=== PATIENT | female | born 1945 | race Caucasian/White ===

== ENCOUNTER 2020-11-26 20:00 | Emergency (ER) | payer MEDICARE, SELFPAY ==
--- NOTE | ~2020-11-26 | XR_ITS ---
EXAMINATION: XR ankle LT min 3V, XR foot LT min 3V DATE: 11/26/2020 20:36 INDICATION: Anterior and lateral left foot and ankle pain post injury TECHNIQUE: 1. Anteroposterior, mortise, additional oblique and lateral view of the left ankle were obtained. 2. Dorsoplantar, two oblique and lateral views of the left foot were obtained. COMPARISON: None. FINDINGS: 25 degrees hallux valgus with bunion at the medial head of the first metatarsal. Alignment of the norman t and ankle is otherwise normal. There is suggestion of a small flake-like avulsion fracture along th e anterolateral margin of the anterior process of the calcaneus in the region of the footplate of the bifurcate ligament. There is mild overlying soft tissue swelling. No other lesions suspicious for fr acture identified. Polyarticular osteoarthritis, mild to moderate at the first metatarsophalangeal ethan int and mild at several joints in the midfoot and multiple interphalangeal joints. No ankle joint eff usion. IMPRESSION: 1. Very small flake-like avulsion fracture at the dorsal lateral aspect of the anterior process of th e calcaneus. Reviewed, dictated and finalized at location A. IMPRESSION: 1. Very small flake-like avulsion fracture at the dorsal lateral aspect of the anterior process of the calcaneus.
[2020-11-26 20:10] VITALS: BP 113/46; PULSE 79; RESP 18; TEMP 36.9; O2SAT 99
--- NOTE | 2020-11-26 20:32 | ED.LOWEXIN ---
HPI - Extremity Injury (Lower) General Chief Complaint: Extremity Injury, Lower Stated Complaint: Injury to left Foot Time Seen by Provider: 11/26/20 20:00 Source: patient, RN notes reviewed and old records reviewed History of Present Illness HPI Narrative: 75 year old female presents to [facility] care with complaints of injury to her left foot which occurred 3 hours ago. She states that she was going down the last step off of her front porch and her ankle went sideways and she felt a pop. Patient states that she did not actually fall it was like she strained her ankle. Patient states that pain is worse when she walks on it states that it is throbbing rates it a 6/10. Patient has bruising to the lateral aspect of her foot. She rates the pain as 6/10 throbbing worse when she walks on it bruising to the lateral foot pain lateral foot and up to ankle. MD complaint: ankle injury and foot injury Onset (ago): hour(s) Injury: Left: ankle and foot Type of Injury: inversion Severity scale (1-10): 6 Exacerbating factors: nothing Context: other (twisted the foot) Associated symptoms: snap/pop sensation Related Data Home Medications Medication Instructions Recorded Confirmed Imig Infusions 06/12/19 alprazolam [Xanax] 0.5 mg PO TID PRN 06/12/19 06/12/19 carbidopa-levodopa 1 tablet PO TID 06/12/19 06/12/19 celecoxib 06/12/19 escitalopram oxalate 10 mg PO DAILY 06/12/19 06/12/19 levothyroxine 88 mcg PO DAILY 06/12/19 06/12/19 mirtazapine 15 mg PO HS 06/12/19 06/12/19 quetiapine 200 mg PO HS 06/12/19 06/12/19 Allergies Allergy/AdvReac Type Severity Reaction Status Date / Time alcohol Allergy Severe Seizure Verified 06/17/19 12:16 Contrast Media Allergy Unknown Hives Uncoded 06/12/19 13:02 Review of Systems Review of Systems: Narrative: CONSTITUTIONAL: Denies fever, chills, or sweats. EYES: Denies visual changes, redness, or discharge. ENT: Denies rhinorrhea, congestion, sore throat, or otalgia. CARDIOVASCULAR: Denies chest pain, palpitations, or edema. RESPIRATORY: Denies cough or dyspnea. GASTROINTESTINAL: Denies abdominal pain, nausea, vomiting, or diarrhea. GENITOURINARY: Denies dysuria or hematuria. SKIN: Denies rash or itching. MUSCULOSKELETAL: Denies back pain,positive for left lateral ankle joint pain lateral left foot, or myalgia. NEUROLOGIC: Denies headache, numbness, or weakness. PSYCHIATRIC: Denies anxiety or depression. All systems reviewed & are unremarkable except as noted in HPI and below PMFSH Past Medical History Medical History (Updated 12/01/20 @ 18:19 by Jade Barton NP) Anxiety Cervical cancer Cervical vertebral fusion Fibromyalgia Fusion of lumbar spine Leukopenia Mycobacterium avium complex Parkinsons disease Recovering alcoholic Shingles Surgical History Surgical History (Updated 12/01/20 @ 18:14 by Jade Barton NP) H/O hemorrhoidectomy H/O inguinal hernia repair History of appendectomy History of lumbar fusion Hx of hysterectomy Hx of tonsillectomy S/P cervical spinal fusion Social History Social History (Updated 12/01/20 @ 18:11 by Jade Barton NP) Smoking status: Never smoker Alcohol intake: former Alcohol use details: recovering alcoholic Substance use: never Living arrangements: with family Gender identity (if verbalized by the patient): Female Comments At time of signature, agree with nursing past medical, surgical, social and family history. There is no relevant family history pertinent to the presenting complaint Exam Narrative: Exam Narrative: GENERAL: Well-appearing, well-nourished, and in no acute distress. HEAD: Normocephalic, atraumatic. EYES: PERRLA and EOMI. ENT: Nares clear, no rhinorrhea or epistaxis. Mucous membranes moist. NECK: Supple. no lymphadenopathy CHEST: Clear to auscultation. No respiratory distress.SAO2 99% on room air HEART: Regular rate and rhythm. No murmur heard. Normal peripheral pulses. ABDOMEN: Soft, nontender, nondi
== END 2020-11-26 21:10 | disposition home or self-care (01) ==
PROVIDERS: Emergency Provider Registered Nurse
DX: S92.022A Displaced fracture of anterior process of left calcaneus, initial encounter for closed fracture (principal); S90.32XA Contusion of left foot, initial encounter; X50.9XXA Other and unspecified overexertion or strenuous movements or postures, initial encounter; F41.9 Anxiety disorder, unspecified; M79.7 Fibromyalgia; G20 Parkinson's disease; Z85.41 Personal history of malignant neoplasm of cervix uteri
CPT/HCPCS: 73610; 73630; 99214; G0463

== ENCOUNTER 2021-05-25 12:06 | Emergency (ER) | payer MEDICARE, SELFPAY ==
--- NOTE | 2021-05-25 12:09 | ED.SKABFB ---
HPI - Skin/Abscess/Foreign Bdy General Chief complaint: Skin/Abscess/Foreign Body Stated complaint: Rash Time Seen by Provider: 05/25/21 12:09 Source: patient and RN notes reviewed History of Present Illness HPI narrative: Patient is a 75-year-old female who presents the urgent care with complaints of shingles to the left side of the face. Patient states that she has had recurrent breakouts approximately 5 times within the last several months due to increased stress. Patient states that her has gotten very demented and he is very mean. Patient states that she had 7 pills of acyclovir left over and took 5 yesterday and 2 this morning. Patient appears very stressed and anxious but otherwise no acute distress noted. Patient aware of the plan of care. Some parts of this dictation were generated by voice recognition software and may contain typographical and/or grammatical inaccuracies. Related Data Home Medications Medication Instructions Recorded Confirmed Imig Infusions 06/12/19 alprazolam [Xanax] 0.5 mg PO TID PRN 06/12/19 05/25/21 celecoxib 06/12/19 escitalopram oxalate 10 mg PO DAILY 06/12/19 05/25/21 levothyroxine 88 mcg PO DAILY 06/12/19 05/25/21 mirtazapine 15 mg PO HS 06/12/19 05/25/21 albuterol sulfate [Ventolin HFA] See Rx Instructions .ROUTE 05/25/21 05/25/21 .COMPLEX PRN carbidopa-levodopa See Rx Instructions .ROUTE .COMPLEX 05/25/21 05/25/21 cyanocobalamin (vitamin B-12) 05/25/21 hydrocodone-acetaminophen tablet 05/25/21 memantine mg 05/25/21 pramipexole See Rx Instructions .ROUTE .COMPLEX 05/25/21 05/25/21 quetiapine 300 mg PO DAILY 05/25/21 05/25/21 sertraline 50 mg PO DAILY 05/25/21 05/25/21 trazodone 50 mg PO DAILY 05/25/21 05/25/21 Allergies Allergy/AdvReac Type Severity Reaction Status Date / Time alcohol Allergy Severe Seizure Verified 05/25/21 12:29 Contrast Media Allergy Unknown Hives Uncoded 05/25/21 12:29 Review of Systems Review of Systems: CONSTITUTIONAL: Denies fever, chills, or sweats. EYES: Denies visual changes, redness, or discharge. ENT: Denies rhinorrhea, congestion, sore throat, or otalgia. CARDIOVASCULAR: Denies chest pain, palpitations, or edema. RESPIRATORY: Denies cough or dyspnea. GASTROINTESTINAL: Denies abdominal pain, nausea, vomiting, or diarrhea. GENITOURINARY: Denies dysuria or hematuria. SKIN: Reports of painful burning shingles breakout to the left side of the face and lips MUSCULOSKELETAL: Denies back pain, joint pain, or myalgia. NEUROLOGIC: Denies headache, numbness, or weakness. All other systems reviewed are negative, except as documented in HPI. [facility] Past Medical History Medical History (Updated 05/25/21 @ 12:39 by WILL Jones) Anxiety Cervical cancer Cervical vertebral fusion Fibromyalgia Fusion of lumbar spine Leukopenia Mycobacterium avium complex Parkinsons disease Recovering alcoholic Shingles Surgical History Surgical History (Updated 12/01/20 @ 18:14 by Jade Barton NP) H/O hemorrhoidectomy H/O inguinal hernia repair History of appendectomy History of lumbar fusion Hx of hysterectomy Hx of tonsillectomy S/P cervical spinal fusion Social History Social History (Updated 12/01/20 @ 18:11 by Jade Barton NP) Smoking status: Never smoker Alcohol intake: former Alcohol use details: recovering alcoholic Substance use: never Gender identity (if verbalized by the patient): Female Comments At the time of my signature, I reviewed and agree with the nursing past medical, surgical, social, and family history. There is no relevant family history pertinent to the patient complaint. Exam Narrative: GENERAL: This is a well-nourished, well-developed patient. Patient appears very stressed HEAD: normocephalic, atraumatic. EYES: PERRL. Sclera clear/white. Vision is grossly intact. EARS: External ears normal NOSE: External nose normal with no obvious nasal discharge, nares without redness, no rhino
[2021-05-25 12:14] VITALS: BP 115/47; PULSE 72; RESP 16; TEMP 37; O2SAT 100
[2021-05-25] MEDS: predniSONE 20 MG TABLET 60 MG PO (12:48)
== END 2021-05-25 13:10 | disposition home or self-care (01) ==
PROVIDERS: Emergency Provider Nurse Practitioner Family
DX: B02.9 Zoster without complications (principal); G20 Parkinson's disease; Z85.41 Personal history of malignant neoplasm of cervix uteri
CPT/HCPCS: 99213; G0463; J7512

== ENCOUNTER 2021-05-30 10:29 | Emergency (ER) | payer MEDICARE, SELFPAY ==
--- NOTE | 2021-05-30 10:35 | ED.BACK ---
HPI - Back Pain/Injury General Chief Complaint: Neck Pain/Injury Stated Complaint: Neck Pain/ Back Pain Time Seen by Provider: 05/30/21 10:35 Source: patient and RN notes reviewed History of Present Illness HPI Narrative: Patient is a 75-year-old female who presents the urgent care with complaints of acute on chronic neck pain and right-sided low back pain. Patient states that she had the grandkids over this past weekend and was doing a lot of lifting. Patient also reports that her is very demanding and she has been doing a lot for him around the home. Patient had a half a pain pill left and took that for her pain. Denies of any injury. Denies of any falls or blunt force trauma. Denies of any headaches. Patient has had neck surgery approximately 10 years ago. No other acute complaints. No acute distress noted. Patient read the plan of care. I feel Some parts of this dictation were generated by voice recognition software and may contain typographical and/or grammatical inaccuracies. Related Data Home Medications Medication Instructions Recorded Confirmed Imig Infusions See Rx Instructions .ROUTE .COMPLEX 06/12/19 alprazolam [Xanax] 0.5 mg PO TID PRN 06/12/19 05/30/21 levothyroxine 88 mcg PO DAILY 06/12/19 05/30/21 mirtazapine 15 mg PO HS 06/12/19 05/30/21 albuterol sulfate [Ventolin HFA] See Rx Instructions .ROUTE 05/25/21 05/30/21 .COMPLEX PRN carbidopa-levodopa See Rx Instructions .ROUTE .COMPLEX 05/25/21 05/30/21 cyanocobalamin (vitamin B-12) See Rx Instructions .ROUTE .COMPLEX 05/25/21 hydrocodone-acetaminophen 1 tablet PO Q6H PRN 05/25/21 05/30/21 memantine 10 mg PO DAILY 05/25/21 05/30/21 pramipexole See Rx Instructions .ROUTE .COMPLEX 05/25/21 05/30/21 quetiapine 300 mg PO DAILY 05/25/21 05/30/21 sertraline 50 mg PO DAILY 05/25/21 05/30/21 Allergies Allergy/AdvReac Type Severity Reaction Status Date / Time alcohol Allergy Severe Seizure Verified 05/30/21 10:54 Contrast Media Allergy Unknown Hives Uncoded 05/25/21 12:29 Review of Systems Review of Systems: CONSTITUTIONAL: Denies fever, chills, or sweats. EYES: Denies visual changes, redness, or discharge. ENT: Denies rhinorrhea, congestion, sore throat, or otalgia. Reports of neck pain CARDIOVASCULAR: Denies chest pain, palpitations, or edema. RESPIRATORY: Denies cough or dyspnea. GASTROINTESTINAL: Denies abdominal pain, nausea, vomiting, or diarrhea. GENITOURINARY: Denies dysuria or hematuria. SKIN: Denies rash or itching. MUSCULOSKELETAL: Reports of right-sided low back pain NEUROLOGIC: Denies headache, numbness, or weakness. All other systems reviewed are negative, except as documented in HPI. [facility] Past Medical History Medical History (Updated 05/30/21 @ 10:59 by WILL Jones) Anxiety Cervical cancer Cervical vertebral fusion Fibromyalgia Fusion of lumbar spine Leukopenia Mycobacterium avium complex Parkinsons disease Recovering alcoholic Shingles Surgical History Surgical History (Updated 12/01/20 @ 18:14 by Jade Barton NP) H/O hemorrhoidectomy H/O inguinal hernia repair History of appendectomy History of lumbar fusion Hx of hysterectomy Hx of tonsillectomy S/P cervical spinal fusion Social History Social History (Updated 12/01/20 @ 18:11 by Jade Barton NP) Smoking status: Never smoker Alcohol intake: former Alcohol use details: recovering alcoholic Substance use: never Gender identity (if verbalized by the patient): Female Comments At the time of my signature, I reviewed and agree with the nursing past medical, surgical, social, and family history. There is no relevant family history pertinent to the patient complaint. Exam Narrative: GENERAL: This is a well-nourished, well-developed patient, in no apparent distress. HEAD: normocephalic, atraumatic. EYES: PERRL. Sclera clear/white. Vision is grossly intact. EARS: External ears normal NOSE: External nose normal with no obviou
[2021-05-30 10:42] VITALS: BP 105/81; PULSE 77; RESP 20; TEMP 37.1; O2SAT 97
== END 2021-05-30 11:00 | disposition home or self-care (01) ==
PROVIDERS: Emergency Provider Nurse Practitioner Family
DX: S16.1XXA Strain of muscle, fascia and tendon at neck level, initial encounter (principal); S39.012A Strain of muscle, fascia and tendon of lower back, initial encounter; X58.XXXA Exposure to other specified factors, initial encounter; M79.7 Fibromyalgia; G20 Parkinson's disease; Z85.41 Personal history of malignant neoplasm of cervix uteri
CPT/HCPCS: 99213; G0463

== ENCOUNTER 2021-06-07 09:07 | Emergency (ER) | payer MEDICARE, SELFPAY ==
--- NOTE | ~2021-06-07 | XR_ITS ---
EXAMINATION: XR lumbar spine 2-3V DATE: 06/07/2021 09:35 INDICATION: Low back pain. Scoliosis. TECHNIQUE: 3 views of lumbar spine were obtained. COMPARISON: None. FINDINGS: There is 23 degrees dextroscoliosis of thoracolumbar spine. There are changes of anterior f usion procedures at L2-L3, L4-L5, and L5-S1. There are changes of posterior fusion procedure at L2-L3 with pedicle screws. There is 3 mm retrolisthesis of L1 on L2. Vertebral body heights are normal. Th ere is mildly decreased disc height at L1-L2 and L3-L4. There is multilevel mild facet joint hypertro phy. Surgical clips overlie left pelvis. IMPRESSION: 1. Mild lumbar spondylosis. 2. Thoracolumbar dextroscoliosis. 3. Anterior fusion procedures at L2-L3, L4-L5, and L5-S1 and posterior fusion procedure at L2-L3. Reviewed, dictated and finalized at location A. AL ASSISTANT IMPRESSION: 1. Mild lumbar spondylosis. 2. Thoracolumbar dextroscoliosis. 3. Anterior fusion procedures at L2-L3, L4-L5, and L5-S1 and posterior fusion p rocedure at L2-L3.
--- NOTE | 2021-06-07 09:13 | ED.BACK ---
HPI - Back Pain/Injury General Chief Complaint: Back Pain/Injury Stated Complaint: back pain Time Seen by Provider: 06/07/21 09:13 Source: patient and RN notes reviewed History of Present Illness HPI Narrative: Patient is 75-year-old female who presents the urgent care with her with complaints of low back pain. Patient states it radiates down the right thigh and she also has intermittent neck pain radiating to the right arm. Patient does have chronic neck pain and chronic scoliosis. Patient was seen just recently at this facility for her recurrent neck pain and was given tramadol, baclofen and a steroid. Patient states that she did not complete the steroid but has been using the baclofen and tramadol which has been helping . Patient states that she has been doing a lot of moving from one house to another and is also had her grandkids over the past week. Patient states that with her history of scoliosis she wants to make sure she did not injure her back . Patient denies of any trauma, injury or fall. No other acute complaints. No acute distress noted. Patient aware of the plan of care. Some parts of this dictation were generated by voice recognition software and may contain typographical and/or grammatical inaccuracies. Related Data Home Medications Medication Instructions Recorded Confirmed Imig Infusions See Rx Instructions .ROUTE .COMPLEX 06/12/19 06/07/21 alprazolam [Xanax] 0.5 mg PO TID PRN 06/12/19 06/07/21 levothyroxine 88 mcg PO DAILY 06/12/19 06/07/21 mirtazapine 15 mg PO HS 06/12/19 06/07/21 albuterol sulfate [Ventolin HFA] See Rx Instructions .ROUTE 05/25/21 06/07/21 .COMPLEX PRN carbidopa-levodopa See Rx Instructions .ROUTE .COMPLEX 05/25/21 06/07/21 cyanocobalamin (vitamin B-12) See Rx Instructions .ROUTE .COMPLEX 05/25/21 06/07/21 hydrocodone-acetaminophen 1 tablet PO Q6H PRN 05/25/21 06/07/21 memantine 10 mg PO DAILY 05/25/21 06/07/21 pramipexole See Rx Instructions .ROUTE .COMPLEX 05/25/21 06/07/21 quetiapine 300 mg PO DAILY 05/25/21 06/07/21 sertraline 50 mg PO DAILY 05/25/21 06/07/21 Allergies Allergy/AdvReac Type Severity Reaction Status Date / Time alcohol Allergy Severe Seizure Verified 06/07/21 09:22 Contrast Media Allergy Unknown Hives Uncoded 06/07/21 09:22 Review of Systems Review of Systems: CONSTITUTIONAL: Denies fever, chills, or sweats. EYES: Denies visual changes, redness, or discharge. ENT: Denies rhinorrhea, congestion, sore throat, or otalgia. CARDIOVASCULAR: Denies chest pain, palpitations, or edema. RESPIRATORY: Denies cough or dyspnea. GASTROINTESTINAL: Denies abdominal pain, nausea, vomiting, or diarrhea. GENITOURINARY: Denies dysuria or hematuria. SKIN: Denies rash or itching. MUSCULOSKELETAL: Reports of acute on chronic low back pain NEUROLOGIC: Denies headache, numbness, or weakness. All other systems reviewed are negative, except as documented in HPI. ON LICENSE OF [facility] Past Medical History Medical History (Updated 06/07/21 @ 09:46 by WILL Jones) Anxiety Cervical cancer Cervical vertebral fusion Fibromyalgia Fusion of lumbar spine Leukopenia Mycobacterium avium complex Parkinsons disease Recovering alcoholic Shingles Surgical History Surgical History (Updated 12/01/20 @ 18:14 by Jade Barton NP) H/O hemorrhoidectomy H/O inguinal hernia repair History of appendectomy History of lumbar fusion Hx of hysterectomy Hx of tonsillectomy S/P cervical spinal fusion Social History Social History (Updated 12/01/20 @ 18:11 by Jade Barton NP) Smoking status: Never smoker Alcohol intake: former Alcohol use details: recovering alcoholic Substance use: never Gender identity (if verbalized by the patient): Female Comments At the time of my signature, I reviewed and agree with the nursing past medical, surgical, social, and family history. There is no relevant family history pertinent to the patient complaint. Exam Narrative: GENERAL: This is
[2021-06-07 09:15] VITALS: BP 122/66; PULSE 99; RESP 16; TEMP 37.6; O2SAT 99
== END 2021-06-07 09:55 | disposition home or self-care (01) ==
PROVIDERS: Emergency Provider Nurse Practitioner Family
DX: G89.29 Other chronic pain (principal); M54.50 Low back pain, unspecified
CPT/HCPCS: 72100; 99213; G0463

== ENCOUNTER 2021-07-07 09:35 | Emergency (ER) | payer MEDICARE, SELFPAY ==
--- NOTE | 2021-07-07 09:38 | ED.GENADULT ---
HPI - General Adult General Stated complaint: sob Time Seen by Provider: 07/07/21 09:38 Source: patient Mode of arrival: ambulatory Limitations: no limitations History of Present Illness HPI narrative: 75-year-old female patient presents to the [facility] accompanied by her with complaints of weakness, chest pain and shortness of breath. Patient states she does have a chronic lung disease which causes her to get infusions due to low white blood counts. Her last infusion was at the site within [facility] in [place] this past . Typically she gets it every 28 days. Patient states she is fully vaccinated against COVID. Denies any coughing, runny nose or cold symptoms at this time. Patient has not tested for COVID. Patient states her symptoms started overnight. Patient also complaining of some epigastric pain as well. Denies vomiting or nausea at this time. Related Data Home Medications Medication Instructions Recorded Confirmed Imig Infusions See Rx Instructions .ROUTE .COMPLEX 06/12/19 06/07/21 alprazolam [Xanax] 0.5 mg PO TID PRN 06/12/19 06/07/21 levothyroxine 88 mcg PO DAILY 06/12/19 06/07/21 mirtazapine 15 mg PO HS 06/12/19 06/07/21 albuterol sulfate [Ventolin HFA] See Rx Instructions .ROUTE 05/25/21 06/07/21 .COMPLEX PRN carbidopa-levodopa See Rx Instructions .ROUTE .COMPLEX 05/25/21 06/07/21 cyanocobalamin (vitamin B-12) See Rx Instructions .ROUTE .COMPLEX 05/25/21 06/07/21 hydrocodone-acetaminophen 1 tablet PO Q6H PRN 05/25/21 06/07/21 memantine 10 mg PO DAILY 05/25/21 06/07/21 pramipexole See Rx Instructions .ROUTE .COMPLEX 05/25/21 06/07/21 quetiapine 300 mg PO DAILY 05/25/21 06/07/21 sertraline 50 mg PO DAILY 05/25/21 06/07/21 Allergies Allergy/AdvReac Type Severity Reaction Status Date / Time alcohol Allergy Severe Seizure Verified 06/07/21 09:22 Contrast Media Allergy Unknown Hives Uncoded 06/07/21 09:22 Review of Systems Review of Systems: CONSTITUTIONAL: Denies fever, chills, or sweats. EYES: Denies visual changes, redness, or discharge. ENT: Denies rhinorrhea, congestion, sore throat, or otalgia. CARDIOVASCULAR: Positive chest pain, denies palpitations, or edema. RESPIRATORY: Denies cough, positive dyspnea. GASTROINTESTINAL: Denies abdominal pain, nausea, vomiting, or diarrhea. GENITOURINARY: Denies dysuria or hematuria. SKIN: Denies rash or itching. MUSCULOSKELETAL: Denies back pain, joint pain, or myalgia. NEUROLOGIC: Denies headache, numbness,, positive weakness. PSYCHIATRIC: Denies anxiety or depression. [facility] Past Medical History Medical History Anxiety Cervical cancer Cervical vertebral fusion Fibromyalgia Fusion of lumbar spine Leukopenia Mycobacterium avium complex Parkinsons disease Recovering alcoholic Shingles Surgical History Surgical History (Updated 12/01/20 @ 18:14 by Jade Barton NP) H/O hemorrhoidectomy H/O inguinal hernia repair History of appendectomy History of lumbar fusion Hx of hysterectomy Hx of tonsillectomy S/P cervical spinal fusion Social History Social History Smoking status: Never smoker Alcohol intake: former Alcohol use details: recovering alcoholic Substance use: never Gender identity (if verbalized by the patient): Female Comments At the time of my signature I agree with nursing past medical history, surgical, social, and family history. There is no relevant family history pertinent to the presenting complaint. Exam Narrative: GENERAL: ill-appearing, well-nourished, and in no acute distress. HEAD: Normocephalic, atraumatic. EYES: PERRLA and EOMI. ENT: Nares clear, no rhinorrhea or epistaxis. Mucous membranes moist. NECK: Supple. No lymphadenopathy CHEST: Clear to auscultation. No respiratory distress. Patient able to talk in clear complete sentences. No labored breathing noted. HEART: Regular rate an
[2021-07-07 09:43] VITALS: BP 173/66; PULSE 90; RESP 20; TEMP 37.3; O2SAT 100
[2021-07-07] MEDS: ASPIRIN 81 MG CHEWABLE TABLET 324 MG PO (09:50)
--- NOTE | 2021-07-07 09:58 | ECG_ITS ---
Measurements Intervals [place] Rate: 88 P: 72 [place]: 142 QRS: 88 QRSD: 96 T: 50 QT: 378 QTc: 460 Interpretive Statements SINUS RHYTHM BORDERLINE ST ABNORMALITY- INFERIOR LEADS BASELINE ARTIFACT- I, II, III, AVR, AVL, AVF, V1-V6 BORDERLINE ECG Electronically Signed On 07-07-2021 13:47:00 CONTROL PANEL TESTER by Reed Velázquez D.O.
== END 2021-07-07 10:10 | disposition short-term general hospital (02) ==
PROVIDERS: Emergency Provider Nurse Practitioner Family
DX: R07.9 Chest pain, unspecified (principal); R06.02 Shortness of breath; Z20.822 Contact with and (suspected) exposure to COVID-19; M79.7 Fibromyalgia; G20 Parkinson's disease; Z85.41 Personal history of malignant neoplasm of cervix uteri; F41.9 Anxiety disorder, unspecified
CPT/HCPCS: 87426; 93005; 99215; A9270; C9803; G0463

== ENCOUNTER 2022-06-21 11:09 | Emergency (ER) | payer MEDICARE, SELFPAY ==
[2022-06-21 11:16] VITALS: BP 132/52; PULSE 57; RESP 16; TEMP 36.9; O2SAT 98
--- NOTE | 2022-06-21 11:28 | ED.URI ---
HPI - URI/Sore Throat General Chief Complaint: Upper Respiratory Infection Stated Complaint: sore throat Time Seen by Provider: 06/21/22 11:28 Source: patient, RN notes reviewed and old records reviewed Mode of arrival: ambulatory Limitations: no limitations History of Present Illness HPI Narrative: 76 year old female presents to [facility] care accompanied by spouse with complaints of sore throat during the night denies any cough, has a runny nose for the past 2 days. Patient reports that chest has felt a little tight and has used her home nebulizer. Patient states that she has felt feverish but has not taken her temperature is afebrile in clinic. Patient reports she has had COVID vaccinations and Booster and also flu shot. patient does take medication for pain daily for chronic back pain MD elicited complaint: sore throat, rhinorrhea and nasal congestion Onset (ago): day(s) (day one of symptoms) Pain scale (0-10): 4 Able to tolerate fluids by mouth: Yes Treatments prior to arrival: other (used nebulizer) Related Data Home Medications Medication Instructions Recorded Confirmed Imig Infusions See Rx Instructions .Route .COMPLEX 06/12/19 06/07/21 alprazolam 0.5 mg tablet (Xanax) 0.5 mg PO TID PRN Anxiety 06/12/19 06/07/21 levothyroxine 88 mcg capsule 88 mcg PO DAILY 06/12/19 06/07/21 mirtazapine 15 mg tablet 15 mg PO HS 06/12/19 06/07/21 albuterol sulfate 90 mcg/actuation See Rx Instructions .Route 05/25/21 06/07/21 aerosol inhaler (Ventolin HFA) .COMPLEX PRN sob carbidopa ER 25 mg-levodopa 100 mg See Rx Instructions .Route .COMPLEX 05/25/21 06/07/21 tablet,extended release cyanocobalamin (vitamin B-12) See Rx Instructions .Route .COMPLEX 05/25/21 06/07/21 1,000 mcg/mL injection solution hydrocodone 10 mg-acetaminophen 1 tablet PO Q6H PRN Pain 05/25/21 06/07/21 325 mg tablet memantine 10 mg tablet 10 mg PO DAILY 05/25/21 06/07/21 pramipexole 0.75 mg tablet See Rx Instructions .Route .COMPLEX 05/25/21 06/07/21 quetiapine 300 mg tablet,extended 300 mg PO DAILY 05/25/21 06/07/21 release 24 hr sertraline 50 mg tablet 50 mg PO DAILY 05/25/21 06/07/21 Allergies Allergy/AdvReac Type Severity Reaction Status Date / Time alcohol Allergy Severe Seizure Verified 07/07/21 11:46 Contrast Media Allergy Unknown Hives Uncoded 06/07/21 09:22 Review of Systems Review of Systems: CONSTITUTIONAL: reports she has felt feverish but hasn't taken temperature, denies any chills, or sweats. EYES: Denies visual changes, redness, or discharge. ENT: Reports rhinorrhea,nasal congestion, positive sore throat, no otalgia. CARDIOVASCULAR: Denies chest pain, palpitations, or edema. RESPIRATORY: Denies cough or dyspnea states some tightness has used nebulizer GASTROINTESTINAL: Denies abdominal pain, nausea, vomiting, or diarrhea. GENITOURINARY: Denies dysuria or hematuria. SKIN: Denies rash or itching. MUSCULOSKELETAL: reports chronic back pain, joint pain, or myalgia. NEUROLOGIC: Denies headache, numbness, or weakness. PSYCHIATRIC: Reports history of anxiety or depression. All systems reviewed & are unremarkable except as noted in HPI and below PMFSH Past Medical History Medical History Anxiety Cervical cancer Cervical vertebral fusion Fibromyalgia Fusion of lumbar spine Leukopenia Mycobacterium avium complex Parkinsons disease Recovering alcoholic Shingles Surgical History Surgical History (Updated 12/01/20 @ 18:14 by Jade Barton NP) H/O hemorrhoidectomy H/O inguinal hernia repair History of appendectomy History of lumbar fusion Hx of hysterectomy Hx of tonsillectomy S/P cervical spinal fusion Social History Social History Smoking status: Never smoker Alcohol intake: former Alcohol use details: recovering alcoholic Substance use: never Gender identity (if verbalized by the patient): Female Comments At
== END 2022-06-21 12:37 | disposition home or self-care (01) ==
PROVIDERS: Emergency Provider Registered Nurse
DX: J06.9 Acute upper respiratory infection, unspecified (principal); F41.9 Anxiety disorder, unspecified; M79.7 Fibromyalgia; G20 Parkinson's disease; Z85.41 Personal history of malignant neoplasm of cervix uteri
CPT/HCPCS: 87081; 87880; 99213; G0463

== ENCOUNTER 2022-07-22 12:32 | Emergency (ER) | payer MEDICARE, SELFPAY ==
[2022-07-22 12:50] VITALS: BP 123/48; PULSE 83; RESP 16; TEMP 36.8; O2SAT 100
--- NOTE | 2022-07-22 13:10 | ED.GENADULT ---
HPI - General Adult General Chief complaint: Urogenital-Female Stated complaint: Urinary Problem Source: patient Mode of arrival: ambulatory Limitations: no limitations History of Present Illness HPI narrative: PATIENT PRESENTS FOR EVALUATION OF URINARY SYMPTOMS FOR LAST FEW DAYS. SYMPTOMS INCLUDE URINARY FREQUENCY AND HESITANCY WITH MILD BURNING. SHE DENIES ANY FEVER, CHILLS, NAUSEA, VOMITING, ABDOMINAL PAIN, VAGINAL BLEEDING OR DISCHARGE. SHE BELIEVES SHE HAS A URINARY TRACT INFECTION. SHE HAS SOME CHRONIC LOW BACK PAIN BUT STATES CURRENT PAIN LEVEL IS UNCHANGED FROM HER BASELINE. SHE WAS REPORTS WATERING EYES AND CLEAR RHINORRHEA FOR THE LAST FEW DAYS. DENIES ANY MUCOPURULENT DISCHARGE FROM HER NARES. NO ADDITIONAL COMPLAINTS OR CONCERNS Related Data Home Medications Medication Instructions Recorded Confirmed Imig Infusions See Rx Instructions .Route .COMPLEX 06/12/19 06/07/21 alprazolam 0.5 mg tablet (Xanax) 0.5 mg PO TID PRN Anxiety 06/12/19 06/07/21 levothyroxine 88 mcg capsule 88 mcg PO DAILY 06/12/19 06/07/21 mirtazapine 15 mg tablet 15 mg PO HS 06/12/19 06/07/21 albuterol sulfate 90 mcg/actuation See Rx Instructions .Route 05/25/21 06/07/21 aerosol inhaler (Ventolin HFA) .COMPLEX PRN sob carbidopa ER 25 mg-levodopa 100 mg See Rx Instructions .Route .COMPLEX 05/25/21 06/07/21 tablet,extended release cyanocobalamin (vitamin B-12) See Rx Instructions .Route .COMPLEX 05/25/21 06/07/21 1,000 mcg/mL injection solution hydrocodone 10 mg-acetaminophen 1 tablet PO Q6H PRN Pain 05/25/21 06/07/21 325 mg tablet memantine 10 mg tablet 10 mg PO DAILY 05/25/21 06/07/21 pramipexole 0.75 mg tablet See Rx Instructions .Route .COMPLEX 05/25/21 06/07/21 quetiapine 300 mg tablet,extended 300 mg PO DAILY 05/25/21 06/07/21 release 24 hr sertraline 50 mg tablet 50 mg PO DAILY 05/25/21 06/07/21 Allergies Allergy/AdvReac Type Severity Reaction Status Date / Time alcohol Allergy Severe Seizure Verified 07/07/21 11:46 Contrast Media Allergy Unknown Hives Uncoded 06/07/21 09:22 Review of Systems Review of Systems: CONSTITUTIONAL: DENIES FEVER, CHILLS, OR SWEATS. EYES: REPORTS WATERING EYES. DENIES VISUAL DISTURBANCE. ENT: REPORTS CLEAR RHINORRHEA. DENIES CONGESTION, SORE THROAT, OR OTALGIA. CARDIOVASCULAR: DENIES CHEST PAIN, PALPITATIONS, OR EDEMA. RESPIRATORY: DENIES COUGH OR DYSPNEA. GASTROINTESTINAL: DENIES ABDOMINAL PAIN, NAUSEA, VOMITING, OR DIARRHEA. GENITOURINARY: REPORTS URINARY FREQUENCY, HESITANCY, AND DYSURIA SKIN: DENIES RASH OR ITCHING. MUSCULOSKELETAL: DENIES BACK PAIN, JOINT PAIN, OR MYALGIA. NEUROLOGIC: DENIES HEADACHE, NUMBNESS, DIZZINESS, OR WEAKNESS. PSYCHIATRIC: DENIES ANXIETY OR DEPRESSION. [facility] Past Medical History Medical History Anxiety Cervical cancer Cervical vertebral fusion Fibromyalgia Fusion of lumbar spine Leukopenia Mycobacterium avium complex Parkinsons disease Recovering alcoholic Shingles Surgical History Surgical History H/O hemorrhoidectomy H/O inguinal hernia repair History of appendectomy History of lumbar fusion Hx of hysterectomy Hx of tonsillectomy S/P cervical spinal fusion Family History Family History Mother Family history non-contributory Social History Social History Smoking status: Never smoker Alcohol intake: former Alcohol use details: recovering alcoholic Substance use: never Living arrangements: with family Gender identity (if verbalized by the patient): Female Exam Narrative: GENERAL: WELL-APPEARING, WELL-NOURISHED, AND IN NO ACUTE DISTRESS. HEAD: NORMOCEPHALIC, ATRAUMATIC. EYES: PERRLA AND EOMI. ENT: NARES CLEAR, NO RHINORRHEA OR EPISTAXIS. MUCOUS MEMBRANES MOIST. OROPHARYNX WITHOUT TONSILLAR
== END 2022-07-22 13:30 | disposition home or self-care (01) ==
PROVIDERS: Emergency Provider Nurse Practitioner
DX: N39.0 Urinary tract infection, site not specified (principal); J30.9 Allergic rhinitis, unspecified; F41.9 Anxiety disorder, unspecified; M79.7 Fibromyalgia; G20 Parkinson's disease; Z85.41 Personal history of malignant neoplasm of cervix uteri
CPT/HCPCS: 81003; 87077; 87086; 87186; 99213; G0463

== ENCOUNTER 2022-08-01 17:57 | Emergency (ER) | payer MEDICARE, SELFPAY ==
--- NOTE | 2022-08-01 17:58 | ED.EXTPRO ---
HPI - Extremity Problem General Chief complaint: Back Pain/Injury Stated complaint: right leg /lower back/neck pain Time Seen by Provider: 08/01/22 17:58 Source: patient Mode of arrival: ambulatory Limitations: no limitations History of Present Illness HPI Narrative: Nisha is a 76-year-old female patient presenting to the clinic today with complaints of right leg weakness/pain, low back, and neck pain that has been ongoing for several months. She reports that she developed some right leg weakness and a sharp shooting pain in the leg a couple hours ago. Denies any known injury or fall. History of osteoarthritis, low back laminectomy/fusion, and neck fusion. Rates her pain currently a 9/10. She denies any saddle anesthesia or loss of bowel or bladder. She has been taking Percocet and tramadol for pain. 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 Related Data Home Medications Medication Instructions Recorded Confirmed Imig Infusions See Rx Instructions .Route .COMPLEX 06/12/19 08/01/22 alprazolam 0.5 mg tablet (Xanax) 0.5 mg PO TID PRN Anxiety 06/12/19 08/01/22 levothyroxine 88 mcg capsule 88 mcg PO DAILY 06/12/19 08/01/22 mirtazapine 15 mg tablet 15 mg PO HS 06/12/19 08/01/22 albuterol sulfate 90 mcg/actuation See Rx Instructions .Route 05/25/21 08/01/22 aerosol inhaler (Ventolin HFA) .COMPLEX PRN sob carbidopa ER 25 mg-levodopa 100 mg See Rx Instructions .Route .COMPLEX 05/25/21 08/01/22 tablet,extended release cyanocobalamin (vitamin B-12) See Rx Instructions .Route .COMPLEX 05/25/21 08/01/22 1,000 mcg/mL injection solution hydrocodone 10 mg-acetaminophen 1 tablet PO Q6H PRN Pain 05/25/21 08/01/22 325 mg tablet memantine 10 mg tablet 10 mg PO DAILY 05/25/21 08/01/22 pramipexole 0.75 mg tablet See Rx Instructions .Route .COMPLEX 05/25/21 08/01/22 quetiapine 300 mg tablet,extended 300 mg PO DAILY 05/25/21 08/01/22 release 24 hr sertraline 50 mg tablet 50 mg PO DAILY 05/25/21 08/01/22 Allergies Allergy/AdvReac Type Severity Reaction Status Date / Time alcohol Allergy Severe Seizure Verified 08/01/22 18:13 Contrast Media Allergy Unknown Hives Uncoded 08/01/22 18:13 Review of Systems Review of Systems: Pertinent positives per HPI. Patient denies any fever, chills, rash, headache, visual changes, dizziness, cough, runny nose, sore throat, shortness of breath, chest pain, palpitations, nausea, vomiting, diarrhea, constipation, abdominal pain, or any urinary issues. PMFSH Past Medical History Medical History Anxiety Cervical cancer Cervical vertebral fusion Fibromyalgia Fusion of lumbar spine Leukopenia Mycobacterium avium complex Parkinsons disease Recovering alcoholic Shingles Surgical History Surgical History H/O hemorrhoidectomy H/O inguinal hernia repair History of appendectomy History of lumbar fusion Hx of hysterectomy Hx of tonsillectomy S/P cervical spinal fusion Family History Family History Mother Family history non-contributory Social History Social History Smoking status: Never smoker Alcohol intake: former Alcohol use details: recovering alcoholic Substance use: never Living arrangements: with family Gender identity (if verbalized by the patient): Female Comments At the time of my signature, I reviewed and agree with the nursing past medical, surgical, social, and family history. There is no relevant family history pertinent to the patient complaint. Exam Narrative: General: Well-developed, well nourished, in no apparent distress Head: Normocephalic, atraumatic. Cardio: Regular rate and rhythm, s1 and s2 normal, no murmur appreciated. Resp: Clear to auscultation bilaterally, no rhonchi, rales, wheezing or rubs.
[2022-08-01] MEDS: KETOROLAC 30 MG/ML VIAL (*BKC) IM (18:24)
--- NOTE | 2022-08-01 18:40 | PC.NURSE ---
Pt ambulatory to restroom. Discharge instructions reviewed with Pt and upon her return to room. Pt instructed to contact spinal doctor on Thursday for follow up appointment. Pt instructed to go to ER if she has any worsening symptoms prior to follow up appointment. states I think we are just going to go ahead and go there anyway .
== END 2022-08-01 18:43 | disposition home or self-care (01) ==
LOC: EXPBETH 18:01
PROVIDERS: Emergency Provider Nurse Practitioner Family
DX: G89.29 Other chronic pain (principal); M54.50 Low back pain, unspecified; M54.2 Cervicalgia; F41.9 Anxiety disorder, unspecified; G20 Parkinson's disease; M79.7 Fibromyalgia; Z85.41 Personal history of malignant neoplasm of cervix uteri
CPT/HCPCS: 96372; 99213; G0463; J1885

== ENCOUNTER 2023-02-18 18:37 | Emergency (ER) | payer MEDICARE, SELFPAY ==
--- NOTE | ~2023-02-18 | XR_ITS ---
EXAM: XR soft tissue neck DATE: 02/18/2023 19:16 HISTORY: FEELS LIKE THROAT 'PULLING' CLOSING X 6 MONTHS . COMPARISON: X-ray C-spine 06/12/2019. FINDINGS: Decreased mineralization. Uncomplicated cervical fusion hardware. Patent airways. No unexp ected radiopaque foreign body. The apices of the lungs are clear. IMPRESSION: Unremarkable soft tissue neck radiograph findings. Reviewed, dictated and finalized at location K.
[2023-02-18 18:45] VITALS: BP 130/64; PULSE 72; RESP 24; TEMP 36.8; O2SAT 100
--- NOTE | 2023-02-18 18:55 | ED.GENADULT ---
HPI - General Adult General Chief complaint: Neck Pain/Injury Stated complaint: trouble breathing Time Seen by Provider: 02/18/23 18:55 Source: patient Mode of arrival: ambulatory Limitations: no limitations History of Present Illness HPI narrative: 77 yo F presents with c/o sore throat, intermittent swelling and difficulty swallowing for 6 months. Reports barium swallow out of state they said was normal . Has appt with ENT tomorrow. States i feel like throat is closing . afebrile. Pt speaking in full sentences. No resp distress. Swallowing oral secretions without difficulty. All systems reviewed and negative except as noted above. Related Data Home Medications Medication Instructions Recorded Confirmed acyclovir 400 mg tablet 400 mg PO DIRECTED 02/18/23 02/18/23 carbidopa 25 mg-levodopa 100 mg 1 tablet PO DIRECTED 02/18/23 02/18/23 tablet duloxetine 30 mg capsule,delayed 30 mg PO DIRECTED 02/18/23 02/18/23 release fludrocortisone 0.1 mg tablet 0.1 mg PO DIRECTED 02/18/23 02/18/23 gabapentin 400 mg capsule 400 mg PO DIRECTED 02/18/23 02/18/23 memantine 10 mg tablet 10 mg PO DIRECTED 02/18/23 02/18/23 pantoprazole 40 mg tablet,delayed 40 mg PO DIRECTED 02/18/23 02/18/23 release pramipexole 0.75 mg tablet 0.75 mg PO DIRECTED 02/18/23 02/18/23 teriparatide 20 mcg/dose (620 20 mcg subcut DIRECTED 02/18/23 02/18/23 mcg/2.48 mL) subcutaneous pen injector Allergies Allergy/AdvReac Type Severity Reaction Status Date / Time alcohol Allergy Severe Seizure Verified 02/18/23 18:57 Contrast Media Allergy Unknown Hives Uncoded 08/01/22 18:13 Review of Systems Review of Systems: CONSTITUTIONAL: Denies fever, chills, or sweats. EYES: Denies visual changes, redness, or discharge. ENT: Denies rhinorrhea, congestion. Reports sore throat, throat swelling, intermittent difficulty swallowing. Denies otalgia. CARDIOVASCULAR: Denies chest pain, palpitations, or edema. RESPIRATORY: Denies cough or dyspnea. GASTROINTESTINAL: Denies abdominal pain, nausea, vomiting, or diarrhea. GENITOURINARY: Denies dysuria or hematuria. SKIN: Denies rash or itching. MUSCULOSKELETAL: Denies back pain, joint pain, or myalgia. NEUROLOGIC: Denies headache, numbness, or weakness. PSYCHIATRIC: Denies anxiety or depression. All other systems reviewed are negative, except as documented in HPI. [facility] Past Medical History Medical History Anxiety Cervical cancer Cervical vertebral fusion Fibromyalgia Fusion of lumbar spine Leukopenia Mycobacterium avium complex Parkinsons disease Recovering alcoholic Shingles Surgical History Surgical History H/O hemorrhoidectomy H/O inguinal hernia repair History of appendectomy History of lumbar fusion Hx of hysterectomy Hx of tonsillectomy S/P cervical spinal fusion Family History Family History Mother Family history non-contributory Social History Social History Smoking status: Never smoker Alcohol intake: former Alcohol use details: recovering alcoholic Substance use: never Living arrangements: with family Gender identity (if verbalized by the patient): Female Comments At time of signature, agree with nursing past medical, surgical, social and family history. There is no relevant family history pertinent to the presenting complaint. Exam Narrative: GENERAL: This is a well-nourished, well-developed patient, in no apparent distress. HEAD: normocephalic, atraumatic. EYES: PERRL. Sclera clear/white. Vision is grossly intact. EARS: External ears normal, auditory canals clear and without drainage, TMs normal without perforation. Hearing grossly intact. NOSE: External nose normal with no obvious nasal discharge,
[2023-02-18 19:09] VITALS: BP 130/64; PULSE 72; RESP 24; TEMP 36.8; O2SAT 100
== END 2023-02-18 19:56 | disposition home or self-care (01) ==
PROVIDERS: Emergency Provider Nurse Practitioner Family
DX: R22.1 Localized swelling, mass and lump, neck (principal); R07.0 Pain in throat; M79.7 Fibromyalgia; G20 Parkinson's disease; Z85.41 Personal history of malignant neoplasm of cervix uteri
CPT/HCPCS: 70360; 87081; 87880; 99213; G0463

== ENCOUNTER 2023-05-03 18:15 | Emergency (ER) | payer MEDICARE, SELFPAY ==
--- NOTE | ~2023-05-03 | XR_ITS ---
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 RESULT: Lines, tubes, and devices: Partially visualized cervical fusion hardware. Partially visualized lumba r fusion hardware. Lungs and pleura: Senescent changes. Mild interstitial opacities in the mid and lower lungs. Cardiomediastinal silhouette: Stable. Other: No acute osseous or upper abdominal finding. IMPRESSION: Mild interstitial edema. Reviewed, dictated and finalized at location K. [employer] APPLIANCE INSTALLER IMPRESSION: Mild interstitial edema.
[2023-05-03 18:25] VITALS: BP 180/71; PULSE 84; RESP 20; TEMP 36.9; O2SAT 100
[2023-05-03 19:48] VITALS: BP 176/78; PULSE 67; RESP 19; O2SAT 100
[2023-05-03 19:51] VITALS: PULSE 68
[2023-05-03 19:52] VITALS: O2SAT 100
--- NOTE | 2023-05-03 20:07 | ECG_ITS ---
Measurements Intervals [place] Rate: 77 P: 48 DE: 129 QRS: 91 QRSD: 86 T: 52 QT: 428 QTc: 486 Interpretive Statements SINUS RHYTHM ATRIAL PREMATURE COMPLEXES RIGHT AXIS DEVIATION BASELINE ARTIFACT- I, II, III, AVR, AVL, AVF, V1-V6 BORDERLINE ECG COMPARED TO ECG 07/07/2021 09:50:42 NO SIGNIFICANT CHANGES Electronically Signed On 05-04-2023 6:23:02 [employer]WE[employer] PERFORATOR by Reed Velázquez D.O.
[2023-05-03] MEDS: ALBUTEROL SULFATE NEB 2.5 MG/3 ML INH INHALATION (20:21)
[2023-05-03] MEDS: IPRATROPIUM BR 0.02% INH SOLN 0.5 MG/2.5 ML VIAL INHALATION (20:21)
[2023-05-03 20:30] LABS: Alveolar/Arterial O2 Gradient 20.4 mmHg; Base Excess ABG 3.5 mEq/l (+/-2.0); Fractional Inspired Oxygen 21 %; HCO3 ABG 27.4 mEq/l (22.0-26.0); Oxygen Content ABG 18.5 %vol (16.0-22.0); Oxygen Saturation ABG 96.7 % (95.0-100.0); PCO2 ABG 38.9 mmHg (35.0-45.0); PO2 ABG 82.7 mmHg (80.0-100.0); PO2 FiO2 Ratio Arterial Blood 3.94 %; Total Hemoglobin 13.8 g/dL (12.0-18.0); pH ABG 7.465 (7.350-7.450)
[2023-05-03 20:31] LABS: Device ROOM AIR; Modified Allen's Test Pass; Site Drawn LEFT RADIAL
[2023-05-03 20:35] VITALS: PULSE 67; RESP 24
[2023-05-03] MEDS: methylPREDNISolone SOD SUCC 125 MG VIAL IV PUSH (20:45)
[2023-05-03 21:01] LABS: Basophils Absolute Auto 0.1 K/mm3 (0.0-0.1); Basophils Percent Auto 1.3 % (0.2-1.2); Eosinophils Absolute Auto 0.1 K/mm3 (0-0.3); Eosinophils Percent Auto 1.6 % (0-4.4); Hematocrit 41.3 % (37.0-47.0); Hemoglobin 13.1 g/dL (12.0-15.0); Immature Granulocyte Absolute 0.05 K/mm3 (0.00-0.031); Immature Granulocyte Percent A 0.7 % (0-0.5); Lymphocytes Absolute Auto 1.28 K/mm3 (0.9-3.2); Lymphocytes Percent Auto 18.4 % (18.3-44.2); Mean Corpuscular HGB Conc 31.7 g/dl (32-36); Mean Corpuscular Hemoglobin 29.2 pg (26-34); Mean Platelet Volume 9.6 fl (7.4-10.4); Monocytes Absolute Auto 0.5 K/mm3 (0.1-0.6); Monocytes Percent Auto 6.5 % (2.6-8.5); Neutrophils Percent Auto 71.5 % (45.5-73.1); Platelet Count Result 286 k/mm3 (150-375); Red Blood Count 4.49 M/mm3 (4.2-5.4); Red Cell Distribution Width 12.8 % (11.5-14.5); White Blood Count 6.9 K/mm3 (4.5-10.0)
[2023-05-03 21:10] LABS: Prothrombin Time 13.2 Seconds (11.1-14.7)
[2023-05-03 21:11] LABS: Alanine Aminotransferase 12 U/L (6-35); Alkaline Phosphatase 98 U/L (38-126); Anion Gap 7 mmol/L (8-16); Aspartate Amino Transferase 21 U/L (14-36); Bilirubin,Total 0.5 mg/dL (0.2-1.3); Blood Urea Nitrogen 16 mg/dL (7-17); Calcium 9.3 mg/dL (8.4-10.2); Carbon Dioxide 29 mmol/L (22-30); Chloride 108 mmol/L (98-107); Estimated CRCL calculation 63 ml/min; Estimated Glomerular Filt Rate > 60; Glucose 83 mg/dL (65-110); Partial Thromboplastin Time 26.3 SECONDS (22.3-36.8); Potassium 3.7 mmol/L (3.4-5.0); Sodium 144 mmol/L (137-145)
[2023-05-03 21:12] LABS: Lactic Acid Reflex 0.9 mmol/L (0.7-2.0)
[2023-05-03 21:19] VITALS: BP 176/71; PULSE 67; RESP 18; O2SAT 99
[2023-05-03 21:23] LABS: Troponin I < 0.012 ng/mL (0.000-0.034)
[2023-05-03 21:27] LABS: Strep Group A RT-PCR NOT DETECTED (Negative)
[2023-05-03 21:28] LABS: Procalcitonin 0.1 ng/mL
[2023-05-03 21:39] LABS: Influenza A QL RT-PCR Negative (Negative); Influenza B QL RT-PCR Negative (Negative); SARS-CoV-2 RNA PCR Negative (Negative)
[2023-05-03 21:52] LABS: Appearance Urine Clear (Clear); Bacteria Urine None Seen /hpf; Bilirubin Urine Negative (Negative); Blood Urine Negative (Negative); Color Urine Yellow (Yellow); Glucose Urine UA Negative (Negative); Ketones Urine Negative (Negative); Leukocyte Esterase Ur Trace LEU/UL (Negative); Nitrate Urine Negative (Negative); Non Pathogenic Casts 0-2; Protein Urine Negative (Negative); RBC Urine 0-2 /hpf (0-2); Specific Grav Ur 1.011 (1.001-1.035); Squamous Epithelial Cell Urine None seen /hpf (Few); pH Urine 7.5 (5.0-9.0)
[2023-05-03 22:12] LABS: Add Urine Microscopic? YES
--- NOTE | 2023-05-03 22:26 | ED.GENADULT ---
HPI - General Adult General Chief complaint: Shortness of Breath/Dyspnea Stated complaint: dysnea Time Seen by Provider: 05/03/23 19:46 History of Present Illness HPI narrative: Patient 77-year-old female who presents the emergency department with chief complaint of shortness of breath. The patient reports the last hour she has felt shortness of breath reports she has had some pain in her upper extremities and also into her neck. The patient reports no prior history of cardiac disease but does report that she has history of Mycobacterium avium complex the patient also has history of COPD. Related Data Home Medications Medication Instructions Recorded Confirmed acyclovir 400 mg tablet 400 mg PO DIRECTED 02/18/23 02/18/23 carbidopa 25 mg-levodopa 100 mg 1 tablet PO DIRECTED 02/18/23 02/18/23 tablet duloxetine 30 mg capsule,delayed 30 mg PO DIRECTED 02/18/23 02/18/23 release fludrocortisone 0.1 mg tablet 0.1 mg PO DIRECTED 02/18/23 02/18/23 gabapentin 400 mg capsule 400 mg PO DIRECTED 02/18/23 02/18/23 memantine 10 mg tablet 10 mg PO DIRECTED 02/18/23 02/18/23 pantoprazole 40 mg tablet,delayed 40 mg PO DIRECTED 02/18/23 02/18/23 release pramipexole 0.75 mg tablet 0.75 mg PO DIRECTED 02/18/23 02/18/23 teriparatide 20 mcg/dose (620 20 mcg subcut DIRECTED 02/18/23 02/18/23 mcg/2.48 mL) subcutaneous pen injector Allergies Allergy/AdvReac Type Severity Reaction Status Date / Time alcohol Allergy Severe Seizure Verified 05/03/23 19:50 Contrast Media Allergy Unknown Hives Uncoded 05/03/23 19:50 Review of Systems Review of Systems: A 10 system review of systems was completed on the patient and is negative except for what is stated in the HPI. Nursing and ancillary documentation was reviewed. PMFSH Past Medical History Medical History Anxiety Cervical cancer Cervical vertebral fusion Fibromyalgia Fusion of lumbar spine Leukopenia Mycobacterium avium complex Parkinsons disease Recovering alcoholic Shingles Surgical History Surgical History H/O hemorrhoidectomy H/O inguinal hernia repair History of appendectomy History of lumbar fusion Hx of hysterectomy Hx of tonsillectomy S/P cervical spinal fusion Family History Family History Mother Family history non-contributory Social History Social History Smoking status: Never smoker Alcohol intake: former Alcohol use details: recovering alcoholic Substance use: never Living arrangements: with family Gender identity (if verbalized by the patient): Female Exam Narrative: GENERAL: Well-appearing, well-nourished, and in no acute distress. HEAD: Normocephalic, atraumatic. EYES: PERRLA and EOMI. ENT: Nares clear, no rhinorrhea or epistaxis. Mucous membranes moist. NECK: Supple. CHEST: Clear to auscultation. No respiratory distress. HEART: Regular rate and rhythm. No murmur heard. Normal peripheral pulses. ABDOMEN: Soft, nontender, nondistended, normal active bowel sounds. EXTREMITIES: Normal range of motion. No edema. SKIN: Warm, dry, no rash. NEURO: No focal deficits. Alert and oriented x3. PSYCH: Normal mood and affect. Course Vital Signs Vital signs: Vital Signs Temperature 36.9 C 05/03/23 18:25 Pulse Rate 84 05/03/23 18:25 Respiratory Rate 20 05/03/23 18:25 Blood Pressure 180/71 H 05/03/23 18:25 Pulse Oximetry 100 05/03/23 18:25 Temperature 36.9 C 05/03/23 18:25 Pulse Rate 67 05/03/23 21:19 Respiratory Rate 18 05/03/23 21:19 Blood Pressure 176/71 H 05/03/23 21:19 Pulse Oximetry 99 05/03/23 21:19 Oxygen Delivery Room Air 05/03/23 19:52 Medical Decision Making MDM Narrative Medical decision making
== END 2023-05-03 22:43 | disposition home or self-care (01) ==
PROVIDERS: Emergency Provider Emergency Medicine
DX: J44.1 Chronic obstructive pulmonary disease with (acute) exacerbation (principal); N39.0 Urinary tract infection, site not specified; Z20.822 Contact with and (suspected) exposure to COVID-19; G20.A1 Parkinson's disease without dyskinesia, without mention of fluctuations; M79.7 Fibromyalgia; Z98.1 Arthrodesis status; Z85.41 Personal history of malignant neoplasm of cervix uteri; Z90.710 Acquired absence of both cervix and uterus
CPT/HCPCS: 36415; 36600; 71045; 80053; 81001; 82805; 83605; 83735; 84145; 84484; 85025; 85610; 85730; 87086; 87636; 87651; 93005; 94640; 96374; 99284; J2930

== ENCOUNTER 2024-06-02 11:39 | Emergency (ER) | payer MEDICARE, SELFPAY ==
--- NOTE | ~2024-06-02 | XR_ITS ---
XR lumbar spine 2-3V 06/02/2024 12:48 Indication: Low back pain Procedure: 4 views lumbar spine Comparison: 06/07/2021 Findings: There is dextroscoliosis of the lumbar spine. There are postsurgical changes consistent wit h posterior fusion at L2-3 and anterior fusion at L2-3, L4-5 and L5-S1. There is moderate lumbar spon dylosis. Osteopenia. There is degenerative retrolisthesis at L1-2 without significant change. There i s disc narrowing at this level. Impression: 1: No acute abnormality of the lumbar spine. No significant interval change. Reviewed, dictated and finalized at location B. ING FACILITIES MANAGER Impression: 1: No acute abnormality of the lumbar spine. No significant interval change.
[2024-06-02 11:51] VITALS: BP 151/68; PULSE 58; RESP 14; TEMP 36.4; O2SAT 100
--- NOTE | 2024-06-02 12:31 | ED.BACK ---
HPI - Back Pain/Injury General Chief Complaint: Back Pain/Injury Stated Complaint: Back Pain Time Seen by Provider: 06/02/24 12:15 Source: patient, RN notes reviewed and old records reviewed Mode of arrival: ambulatory Limitations: no limitations History of Present Illness HPI Narrative: 78 year old female accompanied by her spouse with complaints of increased left lower back pain for the past week with radiation into buttock and sometimes down left leg to about knee region, Patient is a pain management patient and saw her doctor earlier this week and he did increase her Butrans but states won't get it for a couple of weeks. Patient reports that she has been cleaning and moving stuff around for Miguel. Patient does admit to some intermittent numbness in left leg, denies any changes in bowel or bladder function, denies any saddle paraesthesia. MD elicited complaint: back pain Pertinent past history: prior back pain, back surgery and other (is pain management patient) Onset (ago): week(s) (increased pain for one week) Similar Symptoms Previously: Yes Location: lumbar spine and left lower back Radiation: buttocks and left upper leg Treatments prior to arrival: other (butrans patch) Work related injury: No Related Data Home Medications ?Medication ?Instructions ?Recorded ?Confirmed ?Last Taken ?Type acyclovir 400 mg tablet 400 mg PO DIRECTED 02/18/23 02/18/23 Unknown History carbidopa 25 mg-levodopa 100 mg 1 tablet PO DIRECTED 02/18/23 06/02/24 Unknown History tablet duloxetine 30 mg capsule,delayed 30 mg PO DIRECTED 02/18/23 06/02/24 Unknown History release fludrocortisone 0.1 mg tablet 0.1 mg PO DIRECTED 02/18/23 02/18/23 Unknown History gabapentin 400 mg capsule 400 mg PO DIRECTED 02/18/23 06/02/24 Unknown History memantine 10 mg tablet 10 mg PO DIRECTED 02/18/23 06/02/24 Unknown History pantoprazole 40 mg tablet,delayed 40 mg PO DIRECTED 02/18/23 02/18/23 Unknown History release pramipexole 0.75 mg tablet 0.75 mg PO DIRECTED 02/18/23 06/02/24 Unknown History teriparatide 20 mcg/dose (620 20 mcg subcut DIRECTED 02/18/23 02/18/23 Unknown History mcg/2.48 mL) subcutaneous pen injector albuterol sulfate 2.5 mg/3 mL mg 06/02/24 Unknown History (0.083 %) solution for nebulization albuterol sulfate 90 mcg/actuation inhalation 06/02/24 Unknown History aerosol inhaler bisoprolol fumarate 5 mg tablet mg 06/02/24 Unknown History buprenorphine 10 mcg/hour weekly 06/02/24 Unknown History transdermal patch (Butrans) buprenorphine 15 mcg/hour weekly 06/02/24 Unknown History transdermal patch (Butrans) buspirone 10 mg tablet mg 06/02/24 Unknown History carbidopa ER 25 mg-levodopa 100 mg tablet PO 06/02/24 Unknown History tablet,extended release levothyroxine 50 mcg tablet mcg 06/02/24 Unknown History lisinopril 20 mg tablet mg 06/02/24 Unknown History lorazepam 0.5 mg tablet mg 06/02/24 Unknown History triamcinolone acetonide 0.1 % applic topical 06/02/24 Unknown History topical cream Allergies Allergy/AdvReac Type Severity Reaction Status Date / Time alcohol Allergy Severe Seizure Verified 06/02/24 11:40 Contrast Media Allergy Unknown Hives Uncoded 06/02/24 11:40 Review of Systems Review of Systems: CONSTITUTIONAL: Denies fever, chills, or sweats. CARDIOVASCULAR: Denies chest pain, palpitations, or edema. RESPIRATORY: Denies cough or dyspnea. GASTROINTESTINAL: Denies abdominal pain, nausea, vomiting, or diarrhea. GENITOURINARY: Denies dysuria or hematuria. SKIN: Denies rash or itching. MUSCULOSKELETAL: Reports left lumbar back pain with radiation into left buttock and at times down left leg with increased pain for one week Joint pain or myalgia. NEUROLOGIC: Denies headache, numbness, or weakness. All systems reviewed & are unremarkable except as noted in HPI and below PMFSH Past Medical History Medical History (Updated 06/04/24 @ 15:48 by Jade Barton NP) Chronic pain Shingles Cervical cancer Recovering alcoholic Leukopenia Anxiety Fusion of lumbar spine Fibromyalgia Cervical vertebral fusion Mycobacterium avium complex Parkinsons disease Surgical History Surgical History History of lumbar fusion S/P cervical spinal fusion Hx of hysterectomy H/O inguinal hernia repair History of appendectomy H/O hemorrhoidectomy Hx of tonsillectomy Family History Family History Mother Family history non-contributory Social History Social History Smoking status: Never smoker Alcohol intake: former Alcohol use details: recovering alcoholic Substance use: never Living arrangements: with family Gender identity (if verbalized by the patient): Female Comments At time of signature, agree with nursing past medical, surgical, social and family history. There is no relevant family history pertinent to the presenting complaint Exam Narrative: GENERAL: Well-appearing, well-nourished, and in no acute distress. HEAD: Normocephalic, atraumatic. EYES: PERRLA and EOMI. ENT: Nares clear, no rhinorrhea or epistaxis. Mucous membranes moist.TM's normal, throat pink with tonsils absent NECK: Supple.no lymphadenopathy CHEST: Clear to auscultation. No respiratory distress.SAO2 100% on room air no cough noted HEART: Regular rate and rhythm. No murmur heard. Normal peripheral pulses. ABDOMEN: Soft, nontender, nondistended, normal active bowel sounds. EXTREMITIES: Normal range of motion. No edema.Pain to left lower back which radiates to left buttock and at times radiates down left leg to her knee. Patient reports history of previous lumbar fusion with chronic pain . Patient has strong pulses to lower extremities, admits to some intermittent numbness of left leg. Patient is able to ambulate with steady gait, does have Parkinson disease also. SKIN: Warm, dry, no rash. NEURO: No focal deficits. Alert and oriented x3. Course Course Emergency Course: Patient is aware of diagnosis, understands and agrees to treatment plan. Anticipatory guidance given. Patient agrees to follow-up as directed and is aware of reasons to seek care at the emergency department. Portions of this record may have been created with voice recognition software Level of Care: Express Care Visit Vital Signs Vital signs: Vital Signs Temperature 36.4 C 06/02/24 11:51 Pulse Rate 58 L 06/02/24 11:51 Respiratory Rate 14 06/02/24 11:51 Blood Pressure 151/68 H 06/02/24 11:51 Pulse Oximetry 100 06/02/24 11:51 Oxygen Delivery Room Air 12/12/24 11:51 Temperature 36.4 C 06/02/24 11:51 Pulse Rate 58 L 06/02/24 11:51 Respiratory Rate 14 06/02/24 11:51 Blood Pressure 151/68 H 06/02/24 11:51 Pulse Oximetry 100 06/02/24 11:51 Oxygen Delivery Room Air 06/02/24 11:51 reviewed MDM - Back Pain/Injury MDM Narrative Medical decision making narrative: No risk factors or findings concerning for epidural abscess, diskitis, vertebral osteomyelitis, cord compression, cauda equina, vertebral fracture or bone malignancy, AAA, or pyelonephritis. Patient instructed to consider further imaging and workup through their primary care physician as an outpatient if symptoms persist. Differential Diagnosis Differential diagnosis: Likely lumbar radiculopathy, sciatica, strain of lumbar region and other (exacerbation of chronic back pain) Medical Records Attestation: I reviewed the patient's medical records. Imaging Data Attestation: I personally reviewed and interpreted this imaging study as follows: My impression: no acute abnormality of lumbar spine in conparison with past films no significant interval changes, evidence of past fusion moderate lumbar spondylosis and osteopenia Radiologist's impression: [address] [facility] [place] [id number] XRay Report Signed Patient: Nisha Chirinos : 1945 MR#: [id number] Age: 78 Acct:[id number] Loc: [facility] ADM Date: 06/02/24Attending Dr: Ordering Physician: Jade Barton APRN Date of Service: 06/02/24 Procedure(s): XR lumbar spine 2-3V Accession Number(s): [id number] cc: Sarmad, Sarah Kennedy; Jade Barton APRN~ XR lumbar spine 2-3V 06/02/2024 12:48 Indication: Low back pain Procedure: 4 views lumbar spine Comparison: 06/07/2021 Findings: There is dextroscoliosis of the lumbar spine. There are postsurgical changes consistent with posterior fusion at L2-3 and anterior fusion at L2-3, L4-5 and L5-S1. There is moderate lumbar spondylosis. Osteopenia. There is degenerative retrolisthesis at L1-2 without significant change. There is disc narrowing at this level. Impression: 1: No acute abnormality of the lumbar spine. No significant interval change. Reviewed, dictated and finalized at location B. DING ROOM FIXER Dictated By: Ernie Curtis MD 06/02/24 1253 Signed By: <Electronically signed by Ernie Curtis MD in OV> Critical Care Time Critical Care Time Critical Care Time: No Discharge Plan Discharge Clinical Impression: Pain in left lumbar region of back, Sciatica of left side Patient Disposition: Home, Self-Care Condition: Stable Instructions: Sciatica (ED), Lumbar Radiculopathy (ED) Additional Instructions: Ice and heat to the area for 20-30 minutes Gentle stretching exercises Gentle massage Caution with lifting, bending, stooping, twisting Avoid pushing, pulling Prednisone 20 mg b.i.d. for 5 days Anti-inflammatory medicine as directed--take with food Pain medicine as directed for severe pain--caution drowsiness-no driving or alcohol. If this medicine is a narcotic, you can become constipated. He may want to start a laxative right away. Continue your medication as prescribed by pain management Follow-up with your PCP if not improving in 5-7 days If your symptoms persist, change or worsen significantly before you can contact your personal physician then please, without delay, go to the emergency department for further evaluation. Follow-up with PCP in 7-10 days or sooner if needed Follow up with PCP soon in regards to your blood pressure which is elevated above threshold for referral. Blood pressure above 120/80 may indicate pre-hypertension. 151/68 Patient Language: Bangladeshi Prescriptions: New prednisone 20 mg tablet 20 mg PO BID Qty: 10 0RF Rx Instructions: Take with food No Action gabapentin 400 mg capsule 400 mg PO DIRECTED acyclovir 400 mg tablet 400 mg PO DIRECTED pantoprazole 40 mg tablet,delayed release (DR/EC) 40 mg PO DIRECTED carbidopa-levodopa 25-100 mg tablet 1 tablet PO DIRECTED fludrocortisone 0.1 mg tablet 0.1 mg PO DIRECTED memantine 10 mg tablet 10 mg PO DIRECTED duloxetine 30 mg capsule,delayed release(DR/EC) 30 mg PO DIRECTED pramipexole 0.75 mg tablet 0.75 mg PO DIRECTED teriparatide 20 mcg/dose (620mcg/2.48mL) pen injector 20 mcg SUBCUT DIRECTED prednisone 20 mg tablet 40 mg PO DAILY 5 Days Qty: 10 0RF albuterol sulfate 2.5 mg /3 mL (0.083 %) solution for nebulization carbidopa-levodopa 25-100 mg tablet extended release PO lisinopril 20 mg tablet triamcinolone acetonide 0.1 % cream TOPICAL bisoprolol fumarate 5 mg tablet lorazepam 0.5 mg tablet levothyroxine 50 mcg tablet buspirone 10 mg tablet albuterol sulfate 90 mcg/actuation HFA aerosol inhaler INHALATION buprenorphine [Butrans] 10 mcg/hour patch weekly buprenorphine [Butrans] 15 mcg/hour patch weekly sulfamethoxazole-trimethoprim [Bactrim DS] 800-160 mg tablet 1 tablet PO Q12H Qty: 20 0RF prednisone 20 mg tablet 40 mg PO DAILY 5 Days Qty: 10 0RF Follow-up/Referrals: Sarmad,Sarah Kennedy [Primary Care Provider] - Time of Disposition: 13:13 Quality Crystal Coma Scale Eyes: Open Verbal: Oriented and Alert Motor: Follows Commands Crystal Coma Total Score: 15
== END 2024-06-02 13:20 | disposition home or self-care (01) ==
PROVIDERS: Emergency Provider Registered Nurse; PCP Nurse Practitioner
DX: M54.50 Low back pain, unspecified (principal); M54.32 Sciatica, left side; G20.A1 Parkinson's disease without dyskinesia, without mention of fluctuations; M79.7 Fibromyalgia; F41.9 Anxiety disorder, unspecified
CPT/HCPCS: 72100; 99213; G0463